=== PATIENT | female | born 1950 | race Caucasian/White ===

== ENCOUNTER 2022-06-11 06:46 | Day surgery (SDC) | payer MEDICARE, BC, SELFPAY ==
[2022-06-08] MEDS: LACTATED RINGERS 1000 ML 1,000 ML 100 ML IV (07:05)
[2022-06-11] VITALS (7 sets, daily range): BP systolic 112–135; BP diastolic 59–68; PULSE 54–61; RESP 16; TEMP 36.3; O2SAT 97–100; BMI 29.2
[2022-06-11] MEDS: SODIUM CHLORIDE 0.9 % (FLUSH) 10 ML SYRINGE IVF (07:05)
[2022-06-11] MEDS: MIDAZOLAM HCL 1 MG/ML inj IVP (07:19)
[2022-06-11] MEDS: fentaNYL 100 MCG/2 ML inj IVP (07:19)
--- NOTE | 2022-06-11 07:31 | SUR.PREOP ---
HOME COVID TEST NEGATIVE.
--- NOTE | 2022-06-11 07:35 | SUR.PREOP ---
TIME?OUT:?0719 PT/RN/MDA?VERIFICATION?OF?SURGICAL?SITE,?PROCEDURE,?AND?CONSENT OBTAINED?PRIOR?TO?INVASIVE?PROCEDURE.
[2022-06-11] MEDS: methylPREDNISolone acetate 80 MG/ML INJ INTRA-ARTI (08:30)
[2022-06-11] MEDS: NEOMYCIN/BACITRACIN/POLYMYXIN B 1 APPLIC TOPICAL (08:40)
--- NOTE | 2022-06-11 08:47 | P.ORPRC_ITS ---
Procedure Note Date of procedure: 06/11/22 Procedure: After this, we had PREOPERATIVE DIAGNOSIS: 1. Right thumb benign cyst 2. Right ring finger flexor tenosynovitis - trigger finger 3. 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 Right thumb benign cyst 2. Right ring finger flexor tenosynovitis - trigger finger 3. Right ring finger open benign cyst adjacent to A1 kentrell 4. 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 Right Thumb benign cyst open excision 2. Right ring finger open benign cyst excision adjacent to A1 kentrell 3. Right ring finger flexor tendon sheath open release (A1 kentrell) 4. Bilateral index and long finger PIP joint intra-articular cortisone injections (20 mg Depo-Medrol into each joint) SURGEON: Choco Gonsalves MD. FRONT MAKER LOCKSTITCH: Daniel Olmos PA-C ANESTHESIA: Mac plus regional block EBL: Less than 10 mL IMPLANTS: None TOURNIQUET: 25 minutes at 225 torr-forearm tourniquet COMPLICATIONS: None evident INDICATIONS: The patient is a pleasant 71-year-old female who has experienced right ring finger catching and triggering. This is consistent with a trigger finger. She was also felt to have somewhat of a mass or cyst developing in the same area. She also experienced a cyst developing at the base of the thumb, separate and independent from the previous 1 described. Finally, she has bilateral index and long finger PIP joint severe osteoarthrosis. She has received cortisone injections in the past for these and is requesting repeat injections today. Given the failure of nonoperative management, and how this affects daily life, surgery was recommended. DESCRIPTION OF PROCEDURE: Following a thorough discussion of risks, benefits, and alternatives consent was obtained and the operative digit(s) was marked. The patient was brought to the operating room and placed supine on the operating table. Local anesthesia induction was undertaken in preop holding. 1 g IV Ancef was administered within 1 hour incision preoperatively. The patient was told by an infectious disease provider that any time she received prophylactic antibiotics, vancomycin should be the antibiotic of choice before surgery. Proper time-out was performed identifying proper patient, site, and procedure. The operative extremity was prepped and draped in the appropriate sterile fashion using ChloraPrep. [The limb was exsanguinated and the tourniquet inflated.] Would be again with the thumb base cyst open excision. The cyst was readily palpable. Sharp incision through the skin longitudinally allowed us to identify crossing neurologic structures. These were protected throughout the case. The cyst was punctured during excision and found have a thick, gelatinous fluid expressed. This was consistent with a ganglion cyst. We were able to excise the cyst itself fence tract its stalk down deep. It appeared to be coming from the thumb CMC joint. She did have a history of LRTI procedure and thus there is no trapezium/true CMC joint. This was essentially the space between the distal scaphoid and the 1st metacarpal base. The base/stalk was truncated is deep as possible. We were able to cauterize around the perimeter. For after this, we addressed the trigger finger. An incision was made on the palmar surface of the hand overlying the MCP joint region of the appropriate digit(s) respecting the palmar creases being cautious not to cross these perpendicularly. Sharp incision through the skin, and blunt dissection through subcutaneous tissue allowing protection of crossing neurologic structures. The A1 kentrell was visualized directly. It was incised sharply with a 15 blade. It was released completely from its distal to proximal extent under direct visualization. The tendon was inspected and found to be notably striated with some thickening an absence of the typical tendon sheath. There was significant thickening to the A1 kentrell itself. A rongeur was utilized to help resect some of the cystic structure. A clear thick gelatinous fluid was also encountered here at this location is if the ganglion cyst was also present adjacent to the tendon itself. Otherwise, it was intact. The tendon was removed out of the wound, and further inspected.[ Tourniquet was deflated and hemostasis achieved.] Closure was performed with 4-O nylon in interrupted fashion. Finally, bilateral index and long finger PIP joints were injected with 20 mg of Depo-Medrol from a dorsal approach using a 25 gauge needle. After alcohol prep. She tolerated this well. Band-Aids applied. Regarding the rest of the right hand, soft dressings were applied, and the patient was transferred to the recovery room in stable condition. PLAN: 1. Encourage elevation of the operative extremity. 2. Range of motion of the fingers and hand/wrist as tolerated. 3. Ibuprofen/acetaminophen and/or [Percocet] as needed for pain control. 4. Follow up with PA visit in 12-16 days for wound check and suture removal. benign mass
--- NOTE | 2022-06-11 08:58 | W.ANESCHARGE ---
Anesthesia Charges Start Date/Time Anesthesia Start Date: 06/11/22 Anesthesia Start Time: 07:42 Stop Date/Time Anesthesia Stop Date: 06/11/22 Anesthesia Stop Time: 08:55 Summary Emergency: No Extremes of Age: Over 71-CPT 52842
--- NOTE | 2022-06-11 09:16 | W.ANESCHARGE ---
Anesthesia Charges Start Date/Time Anesthesia Start Date: 06/11/22 Anesthesia Start Time: 07:42 Stop Date/Time Anesthesia Stop Date: 06/11/22 Anesthesia Stop Time: 08:55 Summary Emergency: No Extremes of Age: Over 71-CPT 95810
--- NOTE | 2022-06-11 09:16 | W.PM.NB ---
Nerve Block Nerve Block Time Seen by Provider: 07:24 Date Seen: 06/11/22 Type of block requested by surgeon for post-operative analgesia: axillary Side: right Time out performed: Yes Verification of patient name: Yes Verification of date of : Yes Site marking: site marked Name of person performing procedure: Smith Continuous monitoring Was continuous monitoring of O2 sat, B/P, embedded systems engineer, recorded every 15 minutes?: Yes Procedure Checklist: sterile prep, needles and gloves Ultrasound guided. Images saved: Yes Medications given in 5ml increments after negative aspiration: Ropivicaine %: 0.5 mL: 30 Needle gauge: 22 Patient tolerated procedure well: Yes Additional comments: Needle noted adjacent to nerve Block Charges Block Charge (with Pro Fee): Brachial Plexus Use of Ultrasound Machine for Block: Yes- US Guidance/pain block
== END 2022-06-11 09:45 | disposition home or self-care (01) ==
PROVIDERS: PCP Physician Assistant; Visit Provider Orthopaedic Surgery Sports Medicine
PROC: (CPT 26160; principal; 2022-06-11 08:00)
PROC: (CPT 26055; 2022-06-11 08:00)
PROC: (CPT 26160; 2022-06-11 08:00)
DX: M67.441 Ganglion, right hand (principal); M65.341 Trigger finger, right ring finger; M19.042 Primary osteoarthritis, left hand; M19.041 Primary osteoarthritis, right hand; G89.18 Other acute postprocedural pain
CPT/HCPCS: 26160; 26055; 20600 ×4; 01810; 64415; 76942; 88304; 99100; J1040; J2250; J2704; J2795; J3010; J3370; J7050; J7120

== ENCOUNTER 2022-06-14 13:47 | Outpatient (CLI) | payer MEDICARE, BC, SELFPAY ==
--- NOTE | 2022-06-14 13:45 | CRLHL7_ITS ---
For Patients: As a result of the Cures Act, medical imaging exams and procedure reports are released immediately into your electronic medical record. You may view this report before your referring provider. If you have questions, please contact your health care provider. Indication: Degenerative disc disease. Technique: MRI of the cervical spine was performed without the use of intravenous contrast. Comparison: None relevant available. Findings: The vertebral body heights appear maintained without evidence of fracture. No discrete T1 hypointense marrow infiltrating process. Mild multilevel disc height loss and desiccation. No abnormal cord signal. C2-3: No spinal canal or neural foraminal narrowing. C3-4: No spinal canal or neural foraminal narrowing. C4-5: Mild disc bulge with minimal spinal canal narrowing. Mild to moderate left and moderate right neural foraminal narrowing secondary to increased DJD and facet hypertrophy. C5-6: Shallow disc bulge with minimal spinal canal narrowing. Mild to moderate neural foraminal narrowing secondary to uncovertebral and facet hypertrophy. C6-7: Shallow disc bulge with minimal spinal canal narrowing. Mild left neural foraminal narrowing secondary to uncovertebral and facet hypertrophy. C7-T1: No spinal canal or neural foraminal narrowing. Impression: 1. At C4-5, mild to moderate left and moderate right neural foraminal narrowing. 2. At C5-6, [id number] neural foraminal narrowing. 3. At C6-7, mild left neural foraminal narrowing. 4. No abnormal cord signal. Dictated by Andrzej Flores MD @ 06/14/2022 3:25:49 PM (Electronically Signed)
== END 2022-06-14 13:48 | disposition home or self-care (01) ==
LOC: MRI 13:48
PROVIDERS: PCP Physician Assistant; Visit Provider Family Medicine
DX: M50.30 Other cervical disc degeneration, unspecified cervical region (principal); M50.31 Other cervical disc degeneration, high cervical region; M50.221 Other cervical disc displacement at C4-C5 level; M50.222 Other cervical disc displacement at C5-C6 level; M50.223 Other cervical disc displacement at C6-C7 level; M54.12 Radiculopathy, cervical region; M47.812 Spondylosis without myelopathy or radiculopathy, cervical region
CPT/HCPCS: 72141

== ENCOUNTER 2022-08-27 06:30 | Day surgery (SDC) | payer MEDICARE, BC, SELFPAY ==
[2022-08-27] VITALS (8 sets, daily range): BP systolic 130–147; BP diastolic 54–72; PULSE 54–62; RESP 16–18; TEMP 36.6–36.7; O2SAT 96–100; BMI 27.4
--- OUTSIDE RECORDS SUMMARY | 2022-08-27 06:33 | XMS_ITS | Continuity of Care Document ---
Author Name Unknown Organization [facility] Address [address] [address] [place] [address] Phone Care Team Providers Care Circuit Court Clerk Name Role Phone Link Michael REED Unavailable Unavailable Allergies, Adverse Reactions, Alerts Substance Reaction Status Criticality morphine itching Active No Information Medications Medication Instructions Dosage Effective Dates (start - stop) Status Comments atenolol 50 mg tablet take 1 tablet (50M G) by oral route every day 50 MG - Active atorvastatin 40 mg tablet take 0.5 Tablet (20MG) by oral route every day 20 MG - Active estradiol 0.5 mg tablet take 1 tablet (0.5MG) by oral route every day 0.5 MG - Active hydrocortisone-pramoxi ne 2.5 %-1 % rectal cream apply by topical route 3 times every day a thin layer to the affected area(s) - Active lorazepam 1 mg tablet take 1 tablet (1MG ) by oral route every day as needed 1 MG - Active paroxetine 30 mg tablet take 1 tablet (30MG) by oral route every day 30 MG - Active Miralax 17 gram/dose oral powder take 1 by Oral route every day 1 - Active omeprazole 20 mg Cap, Delayed Release Take 1 tablet by mouth daily 1/2 hour before breakfast. - Active STOOL SOFTENER 100MGTABLET Take one tablet by mouth daily - Active Paxil 30 mg Tab Take one tablet by mouth daily - Active Procedures Procedure Date Offic/outpt E&m Estab Mod-hi 2 14 Ugi Endo; W/bx 1/mx Level Iv-surg Path Gross/micro 09 Colonoscopy Flex; Dx (sep Pro) 07 Offic/outpt E m Estab Mod Advance Directives Directive Yes / No Effective Date File Name No Information Encounters Encounter Description Practice Location Reason(s) For Visit Diagnoses Date Provider Providers Copied on Encounter [facility], [address] [address], [place], [id number], [place] tel:[phone] [facility] No Information 6 Link MD Rodriguez. [address] [place] [address], [address], [id number], [place]. tel:[phone] Referring Provider: Referral Self. Offic/outpt E&m Estab Mod-hi 2 [facility], [address] [address], [place], [id number], [place] tel:[phone] [facility] Constipation UnspecifiedCon stipation UnspecifiedHem atochezia/lily naRectal Pain 4 Neva Myers. [address] [place] [address], [address], [id number], [place]. tel:[phone] Referring Provider: Referral Self. [facility], [address] [address], [place], [id number], [place] tel:[phone] [facility] No Information 0 Link MD Rodriguez. [address] [facility], [address], [id number], [place]. tel:[phone] [facility], [address] [address], [place], [id number], [place] tel:[phone] [facility] Gastritis W/o BleedGastroduo denal Dis NosGastritis W/o Bleed 200 9 Link MD Rodriguez. [address] [place] [address], [address], [id number], [place]. tel:[phone] [facility], [address] [address], [place], [place], [id number], [place] tel:[phone] Nicholas [facility] Rectal PainColon Cancer ScreeningHemor rhoids NosRectal Bleed/BRBPR Nesha Viveros. [address] [facility], [facility] [address], [place], [place], [id number], [place]. tel:[phone] Offic/outpt E m Estab Mod [facility], [address] [address], [facility] [place], [place], [id number], [place] tel:[phone] [facility] Hematochezia/m elenaConstipat ion unspecified No Information Family History Family Member Type Diagnosis Age At Onset First degree family history Problem (finding) No history of Ulcerative Colitis First degree family history Problem (finding) No history of Cancer, colon First degree family history Problem (finding) No history of Crohn's First degree family history Problem (finding) No Family history of No history of Colon Polyps Payers Payer name Insurance type Covered alliance party ID Authoriza tion(s) [employer] [facility] [id number] Social History Type Description Quantity Date Captured Comments Sex Female Smoking Status No Information Chief Complaint And Reason For Visit No Information Reason For Referral Reason For Referral No Information Plan Of Treatment Date Type Action Status No Information History Of Present Illness Encounter Date Complaint History Of Prese nt Illness No Information Functional Status Date Functional Assessmen t No Information Instructions Date Instruction Additional Infor mation No Information Assessments Type Assessment Date No Information Patient Care Teams Name Effective Dates (start - stop) Status Members No Information
[2022-08-27] MEDS: BUPIVACAINE 0.5% 30 ML INJECTION (07:00)
[2022-08-27] MEDS: ETHYL CHLORIDE 1 APPLICATION 1 APPLIC TOPICAL (07:00)
--- NOTE | 2022-08-27 07:50 | PM.ORPRC ---
Procedure Note Date of procedure: 08/27/22 Procedure: PREOPERATIVE DIAGNOSIS: 1. Right dorsal thumb painful scar following prior cyst excision POSTOPERATIVE DIAGNOSIS: 1. Right dorsal thumb painful scar following prior cyst excision PROCEDURE: 1. Right dorsal thumb scar revision (2 cm scar) 2. Right dorsal thumb excision of skin SURGEON: Choco Gonsalves MD. NAMED ACCOUNT EXECUTIVE: Mily Chaparro PA-C - Of note, an mail handler assistant was critical for this case to aid in patient positioning, tissue retraction, limb manipulation/positioning, and closure. ANESTHESIA: [Local anesthetic (50:50 mixture of 1% lidocaine with epi and 0.5% marcaine plain)]-4 mL total IMPLANTS: None TOURNIQUET: None COMPLICATIONS: None evident INDICATIONS: The patient is a pleasant 71-year-old female who has experienced right dorsal thumb scar irritation and pain following prior open cyst excision. It appears the superficial skin layers had adhered down to the deeper layers. This puckering of the skin also became somewhat painful and irritating for the patient. Nonoperative management has been tried but unsuccessful. Given the failure of nonoperative management, and how this affects daily life, surgery was recommended. DESCRIPTION OF PROCEDURE: Following a thorough discussion of risks, benefits, and alternatives consent was obtained and the operative extremity was marked. The patient was brought to the operating room and placed supine on the operating table. No antibiotics were administered as this was planned to be a local case only. Proper time-out was performed identifying proper patient, site, and procedure. The operative extremity was prepped and draped in the appropriate sterile fashion using ChloraPrep. The limb was exsanguinated and the tourniquet inflated. The previous scar was visualized in after confirming local anesthesia, sharp incision through skin was performed. The puckered portion of the scar was excised. The scar excision was involving skin only and that measured 5 mm. The total length of scar that was revised was 2 cm. We mobilized the skin from subcutaneous tissue. Assessment of the thumb extensor tendons showed them to still be intact and moving properly. At this stage, hemostasis was achieved, thorough irrigation normal saline performed, and closure was performed with [4-O nylon]. Soft dressings were applied, and the patient was awoken/transferred to the recovery room in stable condition. PLAN: 1. Encourage elevation of the operative extremity. 2. Range of motion of the operative extremity/digits as tolerated. 3. Ibuprofen, acetaminophen and/or Percocet as needed for pain. 4. Follow up with PA visit in 12-16 days for wound check and suture removal.
== END 2022-08-27 08:06 | disposition home or self-care (01) ==
PROVIDERS: PCP Physician Assistant; Visit Provider Orthopaedic Surgery Sports Medicine
PROC: (CPT 11422; principal; 2022-08-27 07:30)
DX: L90.5 Scar conditions and fibrosis of skin (principal)
CPT/HCPCS: 11422; J3490

== ENCOUNTER 2022-10-04 15:00 | Outpatient (RCR) | payer MEDICARE, BC, SELFPAY ==
--- NOTE | 2022-07-03 10:29 | OT.OPOE ---
OT Outpatient Ortho Eval OT Outpatient Ortho Eval Start: 07/03/22 07:26 Freq: Status: Active Protocol: Document 07/03/22 07:26 AMB (Rec: 07/03/22 10:24 AMB [id number]) E-signed By Marlena Concepcion, OTR/L, CLT, [employer] OT OP Ortho Eval Details Type Type Eval Complexity Low Insurance Information Insurance Information Medicare B Outpatient History/Precautions Current Condition/Medical Diagnosis Referring Provider Mily Chaparro PA-C Treatment Diagnosis Stiffness in RUE 4th digit Date of Onset 06/11/22 = DOS Other Precautions Severe arthritis in BUE hands, multiple joint deformities Medical Conditions HTN,Arthritis Other Conditions PMH (copied from ortho chart) Active Problems (Updated 07/02 @ 10:40 by Mily Chaparro PA-C) Cellulitis of right thumb ( Acute) L03.011 S/P trigger finger release ( Acute 06/11/22) Z98.890 3 weeks PO right ring finger flexor tendon sheath open release (06/11/2022, Dr. Gonsalves) S/P excision of ganglion cyst (Acute 06/11/22) Z98.890 3 weeks PO right Thumb benign cyst open excision, Right ring finger open benign cyst excision adjacent to A1 kentrell (06/11/2022, Dr. 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 Lumbar degenerative disc disease (Chronic) M51.36 Osteoarthritis of right middle finger (Acute) M19.041 PIP osteoarthrosis, severe, primary - [id number]-[id number] Osteoarthritis of left middle finger (Acute) M19.042 PIP osteoarthrosis, severe, primary - [id number] Osteoarthritis of right index finger (Acute) M19.041 PIP osteoarthrosis, severe, primary - [id number]-ov-jrrh Osteoarthritis of left index finger (Acute) M19.042 PIP osteoarthrosis, severe, primary - [id number]-hm-[id number] Medical History (Reviewed 02/02 @ 10:58 by Linette Zelaya (RN), RN) HTN (hypertension) Impaired fasting glucose Lymphedema Neurogenic claudication Osteopenia Sensorineural hearing loss Surgical History (Reviewed 02/02 @ 10:58 by Linette Zelaya (RN), RN) H/O hand surgery (01/23/17) History of thumb surgery S/P arthroscopy of left shoulder (10/03/17) S/P excision of ganglion cyst (06/11/22) S/P left knee arthroscopy () S/P left knee arthroscopy (04/12) S/P left knee arthroscopy () S/P left knee arthroscopy (27/04) S/P right knee arthroscopy () S/P trigger finger release () Status post arthroscopy of right shoulder (05/19/14) 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 Date of surgery 06/11/2022. Pt states she has a long standing history of arthritis in her hands. Pt has had BUE CMC arthroplasties 5-10 yrs ago and has reoccurring steroid injections in multiple joints of her fingers. 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 Pt states she is concerned about the bump that is left in the area of her cyst removal from this current surgery, states it's very sensitive and painful. Pt states she developed an infection in the area after surgery and was antibiotics after surgery, feels it has cleared up and feels this is why her scar tissue is so excessive. Pain Assessment Pain Present Pain Present Pain Reported Location Right Hand Description Burning,Tightness,Sharp,Dull, Achy,Throbbing,Stabbing, Shooting Intensity 8 Wrist Goniometric Wrist Right Active Flexion (70-90 degrees) 80 Active Extension (60-70 degrees) 60 Active Ulnar Deviation (20-30 degrees) 20 Active Radial Deviation (15-20 degrees) 10 L ROM Limitations Soft Tissue Tightness Hand Pinch/Gas Analyst Strength Hand Left Gas Analyst Strength Position 1 (lbs) 42 Lateral Pinch Strength (lbs) 12 Three Point Pinch (lbs) 12 Right Gas Analyst Strength Position 1 (lbs) 32 Lateral Pinch Strength (lbs) 12 Three Point Pinch (lbs) 10 Comments Comments 07/03/22 AROM of the RUE thumb opposition if to 5th digit PIP , IP is 35, MP is 35. AROM of pt's fingers has long standing limitations due to the level of OA in multiple joints. Composite fist is -1. 5cm from full measured at the tip of the 3rd digit to the DPC, pt feels she was able to achieve better active fist prior to her surgery and is hopeful for improvement as she is limited in gripping and carrying things now with her RUE. Edema Assessment Additional Information Comments 07/03/22 Pt does have some swelling in her RUE thumb and into dorsal hand/wrist. Thick scar tissue protrudes ~ 1cm incisional area, scab is in place, no redness or warmth, no s/s of infection. OT Objective Data Hand Hand Dominance Right OT Problems Problems Problems Decreased Strength,Decreased Range of Motion,Decreased Dexterity,Decreased Fine Motor ,Sensory Sensitivity,Gripping, Pinching Other Problems Writing,Opening Containers, Computer,Fasteners Patient Potential Good Assessment Assessment Assessment Pt presents to OT 3 weeks and 1 day s/p RUE thumb cyst removal, ring finger TF release + cyst removal and RUE index and 3rd digit PIP cortisone injections. PT demonstrates pain / hypersensitivity, swelling, weakness and limited AROM of her RUE. Pt will benefit from skilled OT intervention to address deficits and restore pain-free ROM, strength, and function of her RUE. She will also benefit from pt education / training in joint protection strategies for LT management of her hand OA. Occupational Therapy Treatment Plan - OP Potential Rehabilitation Potential Good Set Goals Goals Set with Patient Yes Goals Goals 1. Pt will be independent and compliant with HEP in order to resume full, pain-free use of the involved UE. 3 weeks 2. Pt will demonstrate full, pain-free AROM of the involved UE in order to improve ability to grasp and hold. 6 weeks 3. Pt will demonstrate pain- free mule packer and pinch strength comparable to the uninvolved side in order to improve functional grasp, hold, reach, and lifting ability needed to complete self-care, leisure tasks, and work activities. 8 weeks Target Date 09/30/22 Progress set Treatment Plan Treatment Plan Evaluation,Edema Control,Joint Mobilization,Manual Therapy, Paraffin Bath,Splinting, Ultrasound,Wound Care/Scar Management,Therapeutic Exercise,Therapeutic Activities,Self-Care/Home Management,Education Expected Frequency 1-2x Week Expected Duration 8-10 Weeks Certification Certification I Certify That: Therapy Services Provided, Therapy Plan Established, Therapy Plan Reviewed Recertification Information Recertification Information Initial Certification Date 07/03/22 Recertification Due Date 10/01/22 Reasons to Continue Skilled Therapy Initiated OT today due to pain , swelling, limited ROM and weakness in pt's RUE following hand surgery, please see above. Rehabilitation Potential Good Continued Plan of Care and Interventions Please see above Provider Signature Shows Agreement With POC & Medical Necessity Physician Comment/Change Comment or Changes Physician NPI Number #
== END 2023-01-11 16:04 | disposition home or self-care (01) ==
PROVIDERS: PCP Physician Assistant; Visit Provider Physician Assistant Surgical
DX: Z98.890 Other specified postprocedural states (principal); Z51.89 Encounter for other specified aftercare
CPT/HCPCS: 97035; 97110; 97140; 97165; X5282

== ENCOUNTER 2023-10-22 06:45 | Outpatient (CLI) | payer MEDICARE, BC, SELFPAY ==
[2023-10-22 07:14] VITALS: BP 120/60; PULSE 61; RESP 16; O2SAT 99
[2023-10-22 07:59] VITALS: BP 125/57; PULSE 57; RESP 16; O2SAT 98
== END 2023-10-22 08:22 | disposition home or self-care (01) ==
PROVIDERS: PCP Student in an Organized Health Care Education/Training Program; Visit Provider Family Medicine
DX: M76.899 Other specified enthesopathies of unspecified lower limb, excluding foot (principal)
CPT/HCPCS: 27006; 76942